=== PATIENT | male | born 1960 | race Caucasian/White ===

== ENCOUNTER 2017-07-31 13:58 | Inpatient (IN) | payer MEDICAID ==
[2017-07-31 13:59] VITALS: BP 152/105; PULSE 93; RESP 20; TEMP 97.7; O2SAT 96
--- NOTE | 2017-07-31 14:50 | PD ---
HPI Chief Complaint: Wound/Suture/Staple Re-Check Time Seen by Provider: 14:50 Travel History International Travel<30 days: No Contact w/Intl Traveler<30days: No Traveled to known affect area: No History of Present Illness HPI 56-year-old male came to the emergency room with history of right foot open wound that started about 2 weeks ago. Patient says he has been taking care at home but it is getting worse. He started getting pain and hence came to the emergency room. Patient is from [place]. He has history of diabetes and that foot had had partial amputation of the forefoot done in the past. Patient says he has been getting chills at home but no fever. Vital signs are stable. [facility] Past Medical History Narrative Medical List of his past medical, surgical, social and family history reviewed from the nursing note. Respiratory: Yes (COPD) Social History Tobacco Use: Yes Allergies-Medications (Allergen,Severity, Reaction): Coded Allergies: vancomycin (Verified Allergy, Severe, Hives, 07/31/17) Comments List of his allergies reviewed from the nursing note. Reported Meds & Prescriptions Reported Meds & Active Scripts Active Reported Symbicort Inh (Budesonide/Formoterol Fumarate) 160-4.5 Mcg/Act Aero 2 Puff INH Q12HR Narrative Medication List of his home medications reviewed from the nursing note. Review of Systems Except as stated in HPI: all other systems reviewed are Neg Musculoskeletal: Positive: Pain Physical Exam Narrative GENERAL: Awake, alert, moderate distress SKIN: Focused skin assessment warm/dry. Right forefoot amputation, 2 cm diameter ulcer at the head of the fourth metatarsal on the plantar aspect. HEAD: Atraumatic. Normocephalic. EYES: Pupils equal and round. No scleral icterus. No injection or drainage. ENT: No nasal bleeding or discharge. Mucous membranes pink and moist. NECK: Trachea midline. No JVD. CARDIOVASCULAR: Regular rate and rhythm. No murmur appreciated. RESPIRATORY: No accessory muscle use. Clear to auscultation. Breath sounds equal bilaterally. GASTROINTESTINAL: Abdomen soft, non-tender, nondistended. Hepatic and splenic margins not palpable. MUSCULOSKELETAL: No obvious deformities. No clubbing. No cyanosis. No edema. NEUROLOGICAL: Awake and alert. No obvious cranial nerve deficits. Motor grossly within normal limits. Normal speech. PSYCHIATRIC: Appropriate mood and affect; insight and judgment normal. Data Data Last Documented VS Orders Orders Sepsis Workup Initiated (07/31/17 ) Complete Blood Count With Diff (07/31/17 14:50) Comprehensive Metabolic Panel (07/31/17 14:50) Lactic Acid Sepsis Protocol (07/31/17 14:50) Urinalysis - C+S If Indicated (07/31/17 14:50) Blood Culture (07/31/17 14:50) Blood Glucose (07/31/17 14:50) Ecg Monitoring (07/31/17 14:50) Iv Access Insert/Monitor (07/31/17 14:50) Oximetry (07/31/17 14:50) Oxygen Administration (07/31/17 14:50) C-Reactive Protein (Crp) (07/31/17 14:50) Piperacil-Tazo 4.5 Gm Premix (Zosyn 4.5 (07/31/17 15:00) Sodium Chlor 0.9% 1000 Ml Inj (Ns 1000 M (07/31/17 15:00) Mri Foot W&W/O Contrast (07/31/17 ) Gadodiamide Pf Inj (Omniscan Pf Inj) (07/31/17 17:00) Morphine Inj (Morphine Inj) (07/31/17 18:00) Ketorolac Inj (Toradol Inj) (07/31/17 18:00) Consult Podiatry (07/31/17 ) Admit Order (Ed Use Only) (07/31/17 18:40) Foot, Limited (2vws) (07/31/17 ) (Hub Use Only)Inp Phy Cons/Ref (07/31/17 ) Labs Laboratory Tests Test 07/31/17 15:10 07/31/17 18:00 White Blood Count 9.3 TH/MM3 Red Blood Count 5.72 MIL/MM3 Hemoglobin 18.1 GM/DL Hematocrit 52.3 % Mean Corpuscular Volume 91.3 FL Mean Corpuscular Hemoglobin 31.7 PG Mean Corpuscular Hemoglobin Concent 34.7 % Red Cell Distribution Width 14.6 % Platelet Count 289 TH/MM3 Mean Platelet Volume 8.2 FL Neutrophils (%) (Auto) 61.7 % Lymphocytes (%) (Auto) 27.4 % Monocytes (%) (Auto) 7.9 % Eosinophils (%) (Auto) 2.1 % Basophils (%) (Auto) 0.9 % Neutrophils # (Auto) 5.7 TH/MM3 Lymphocytes # (Auto) 2.5 TH/MM3 Monocytes # (Auto) 0.7 TH/MM3 Eosinophils # (Auto) 0.2 TH/MM3 Basophils # (Auto) 0.1 TH/MM3 CBC Comment DIFF FINAL Differential Comment Erythrocyte Sedimentation Rate 1 mm/hr Blood Urea Nitrogen 11 MG/DL Creatinine 0.99 MG/DL Random Glucose 93 MG/DL Total Protein 7.9 GM/DL Albumin 3.7 GM/DL Calcium Level 9.3 MG/DL Alkaline Phosphatase 101 U/L Aspartate Amino Transf (AST/SGOT) 13 U/L Alanine Aminotransferase (ALT/SGPT) 20 U/L Total Bilirubin 0.3 MG/DL Sodium Level 138 MEQ/L Potassium Level 4.0 MEQ/L Chloride Level 105 MEQ/L Carbon Dioxide Level 26.6 MEQ/L Anion Gap 6 MEQ/L Estimat Glomerular Filtration Rate 78 ML/MIN Lactic Acid Level 1.2 mmol/L C-Reactive Protein 1.60 MG/DL Urine Color YELLOW Urine Turbidity CLEAR Urine pH 5.5 Urine Specific [place] 1.017 Urine Protein NEG mg/dL Urine Glucose (UA) NEG mg/dL Urine Ketones NEG mg/dL Urine Occult Blood NEG Urine Nitrite NEG Urine Bilirubin NEG Urine Urobilinogen LESS THAN 2.0 MG/DL Urine Leukocyte Esterase NEG Urine RBC 2 /hpf Urine WBC LESS THAN 1 /hpf Urine Mucus FEW /lpf Microscopic Urinalysis Comment CATH-CULT NOT IND MDM Medical Decision Making Medical Screen Exam Complete: Yes Emergency Medical Condition: Yes Medical Record Reviewed: Yes Differential Diagnosis Osteo-myelitis, diabetes foot ulcer Narrative Course 6:28 PM patient was given IV Zosyn. Blood test results are back and within acceptable limits. MRI shows early osteomyelitis. I discussed the case with the directional driller Dr. Aden and she will consult on the patient. Awaiting for the hospitalist to call back for admission. Patient was treated for pain. Procedures EKG Prior to Arrival: No Diagnosis Primary Impression: Diabetes mellitus with foot ulcer Qualified Codes: E13.621 - Other specified diabetes mellitus with foot ulcer; L97.509 - Non-pressure chronic ulcer of other part of unspecified foot with unspecified severity Additional Impression: Osteomyelitis Qualified Codes: M86.171 - Other acute osteomyelitis, right ankle and foot Admitting Information Admitting Physician Requests: Admit Scripts Hydrocodone-Acetaminophen ([place]) 5 Mg-325 Mg Tab 1 TAB PO Q6H Y for PAIN, #12 TAB 0 Refills Prov: Usha Lemus DO 08/02/17 Doxycycline Hyclate (Doxycycline Hyclate) 100 Mg Cap 100 MG PO BID for Infection, #20 CAP 0 Refills Prov: Usha Lemus DO 08/02/17 Carlitos Stover MD Jul 31, 2017 14:50
[2017-07-31] MEDS ORDERED: PIPERACIL-TAZO 4.5 GM PREMIX 100 ML IV ONE (15:00)
[2017-07-31] MEDS ORDERED: SODIUM CHLOR 0.9% 1000 ML INJ 1,000 ML IV ONE (15:00)
[2017-07-31 15:46] LABS: AUTOMATED NEUTROPHIL # 5.7 TH/MM3 (1.8-7.7); BASOPHIL # 0.1 TH/MM3 (0-0.2); BASOPHIL % 0.9 % (0.0-2.0); EOSINOPHIL # 0.2 TH/MM3 (0-0.4); EOSINOPHIL % 2.1 % (0.0-4.0); HEMATOCRIT 52.3 % (39.0-51.0); HEMOGLOBIN 18.1 GM/DL (13.0-17.0); LYMPH % 27.4 % (9.0-44.0); LYMPHOCYTE # 2.5 TH/MM3 (1.0-4.8); MEAN CELL VOLUME 91.3 FL (80.0-100.0); MEAN CORPUSCULAR HEMOGLOBIN 31.7 PG (27.0-34.0); MEAN CORPUSCULAR HGB CONC 34.7 % (32.0-36.0); MEAN PLATELET VOLUME 8.2 FL (7.0-11.0); MONO % 7.9 % (0.0-8.0); MONOCYTE # 0.7 TH/MM3 (0-0.9); NEUT % 61.7 % (16.0-70.0); PLATELET COUNT 289 TH/MM3 (150-450); RED BLOOD COUNT 5.72 MIL/MM3 (4.50-5.90); RED CELL DISTRIBUTION WIDTH 14.6 % (11.6-17.2); WHITE BLOOD COUNT 9.3 TH/MM3 (4.0-11.0)
[2017-07-31 16:02] LABS: ALBUMIN 3.7 GM/DL (3.4-5.0); AST (GOT) 13 U/L (15-37); BICARBONATE 26.6 MEQ/L (21.0-32.0); BLOOD UREA NITROGEN 11 MG/DL (7-18); CALCIUM 9.3 MG/DL (8.5-10.1); CHLORIDE 105 MEQ/L (98-107); CREATININE 0.99 MG/DL (0.60-1.30); GLOMERULAR FILTRATION RATE 78 ML/MIN (>89); GLUCOSE,RANDOM 93 MG/DL (74-106); SODIUM (NA) 138 MEQ/L (136-145)
[2017-07-31 16:05] LABS: ALKALINE PHOSPHATASE 101 U/L (45-117); ALT (GPT) 20 U/L (12-78); TOTAL BILIRUBIN ADULT 0.3 MG/DL (0.2-1.0); TOTAL PROTEIN 7.9 GM/DL (6.4-8.2)
[2017-07-31] MEDS ORDERED: GADODIAMIDE PF 287 MG/ML 20 ML VIAL (for RAD MRI) IVCONTRAST ONE (17:00)
[2017-07-31] MEDS ORDERED: SYMB160A INH (18:00)
[2017-07-31] MEDS ORDERED: MORPHINE SULFATE 2 MG/ML INJ IV PUSH ONE (18:00)
[2017-07-31] MEDS ORDERED: KETOROLAC TROMETHAMINE 30 MG/ML (IVP) VIAL IV PUSH ONE (18:00)
[2017-07-31 18:04] VITALS: BP 114/96; PULSE 100; RESP 14; O2SAT 96
--- NOTE | 2017-07-31 18:18 | RADRPT ---
EXAM DATE/TIME: 07/31/2017 16:36 [facility] COMPARISON: No previous studies available for comparison. INDICATIONS : Osteomyelitis. Wound on plantar surface of right foot. CONTRAST: 20 cc Omniscan (gadodiamide) IV MEDICAL HISTORY : Diabetes mellitus type 2. Hypercholesterolemia. SURGICAL HISTORY : Cholecystectomy. ENCOUNTER: Initial ACUITY: 2 weeks PAIN SCORE: 5/10 LOCATION: Right foot. TECHNIQUE: Multiplanar, multisequence MRI examination was performed without contrast and after the intravenous a dministration of gadolinium. FINDINGS: The patient is status post transmetatarsal amputation of the right foot. There is evidence of edema a nd enhancement of the mid to distal portions of the first and fifth metatarsals. The distal most port ion of the second metatarsal also demonstrates some edema and enhancement. Although these findings ar e nonspecific possibility of osteomyelitis of these bones is raised. White blood cell scan may be hel pful for further evaluation if confirmation is needed. The remainder of the bones of the right foot a re unremarkable. Subcutaneous swelling is noted both medially and laterally adjacent to the first and fifth metatarsals. No definite rim-enhancing collection to suggests abscess is noted. CONCLUSION: Edema and enhancement of the mid to distal portions of the first and fifth metatarsals. The distal mo st portion of the second metatarsal also demonstrates some edema and enhancement. Although these find ings are nonspecific possibility of osteomyelitis of these bones is raised. White blood cell scan may be helpful for further evaluation if confirmation is needed. Cellulitis is noted adjacent to the fir st and fifth metatarsals without definite subcutaneous abscess noted. Gideon Toure MD on July 31, 2017 at 18:06 Board Certified Radiologist. This report was verified electronically.
[2017-07-31 18:28] LABS: BILIRUBIN, URINE NEG (NEG); BLOOD, URINE NEG (NEG); GLUCOSE,URINE NEG (NEG); KETONE, URINE NEG (NEG); MUCUS URINE FEW /lpf (OCC); NITRITE,URINE NEG (NEG); PH, URINE 5.5 (5.0-8.5); URINE COLOR YELLOW (YELLW/STRAW); URINE LEUKOCYTE ESTERASE NEG (NEG)
[2017-07-31] MEDS ORDERED: SODIUM CHLORIDE 0.9% FLUSH 10 ML FLUSH IV FLUSH PRN (18:45)
[2017-07-31] MEDS ORDERED: NALOXONE HCL 0.4 MG/ML AMP IV PUSH PRN (18:45)
--- NOTE | 2017-07-31 19:20 | RADRPT ---
EXAM DATE/TIME: 07/31/2017 18:56 [facility] COMPARISON: No previous studies available for comparison. INDICATIONS : Osteomyelitis. Wound on plantar surface of right foot. MEDICAL HISTORY : Diabetes mellitus type II. Hypercholesterolemia. SURGICAL HISTORY : Cholecystectomy. Right toes amputation. ENCOUNTER: Initial ACUITY: 2 weeks PAIN SCORE: 5/10 LOCATION: Right foot. FINDINGS: Two view examination of the right foot demonstrates a mid tarsal amputation of the foot. There is sof t tissue swelling. No definite emphysema seen in the subcutaneous soft tissues. There is no evidence of any cortical erosion or bony destruction. No radiopaque foreign bodies. CONCLUSION: 1. Nonspecific soft tissue swelling involving the distal portion of the foot. 2. Status post midtarsal amputation. 3. No bone erosion or destruction to suggest osteomyelitis. Mark Olmos MD on July 31, 2017 at 19:14 Board Certified Radiologist. This report was verified electronically.
[2017-07-31 20:00] VITALS: BP 142/79; PULSE 88; RESP 20; TEMP 97; O2SAT 95
--- NOTE | 2017-07-31 20:25 | HHI.HP ---
[facility] Primary Care Physician Unknown Admission Diagnosis Diabetic foot, Osteomyelitis Diagnoses: Travel History International Travel<30 Days: No Contact w/Intl Traveler <30 Da: No Traveled to Known Affected Are: No History of Present Illness 56-year-old male with a past medical history significant for COPD, hyperlipidemia and history of osteomyelitis requiring previous transmetatarsal amputation presents with a two-week history of worsening right foot ulcer. Patient reports he sees a middle school guidance counselor in [place], last seen 4 weeks ago. Approximately 2 weeks ago he developed a blister on the medial plantar aspect of his foot. The blister that ruptured, draining serosanguineous material and an ulcer formed. Over the past 2-3 days the discharge has become malodorous. The patient denies any fever/chills. Denies shortness of breath or chest pain. Review of Systems Except as stated in HPI: all other systems reviewed are Neg Past Family Social History Past Medical History Hyperlipidemia COPD History of right foot osteomyelitis status post amputation 3 Past Surgical History 3 toe amputations for osteomyelitis Cholecystectomy Right knee surgery Reported Medications Reported Meds & Active Scripts Active Reported Symbicort Inh (Budesonide/Formoterol Fumarate) 160-4.5 Mcg/Act Aero 2 Puff INH Q12HR Allergies: Coded Allergies: vancomycin (Verified Allergy, Severe, Hives, 07/31/17) Family History Mom with diabetes mellitus, type CAD. Social History Smokes cigars occasionally. Denies alcohol or illicit drugs. Physical Exam Vital Signs Vital Signs Date Time Temp Pulse Resp B/P (MAP) Pulse Ox O2 Delivery O2 Flow Rate FiO2 07/31/17 18:04 100 14 114/96 (102) 96 Room Air 07/31/17 16:36 (121) Room Air 07/31/17 16:36 98 Room Air 07/31/17 14:47 84 16 07/31/17 13:59 97.7 93 20 152/105 (121) 96 Room Air Physical Exam GENERAL: male sitting up in bed SKIN: 3 cm round ulceration on the medial aspect of the plantar surface of the right lower extremity. Ulcer is deep with surrounding erythema. No drainage. HEAD: Atraumatic. Normocephalic. No temporal or scalp tenderness. EYES: Pupils equal round and reactive. Extraocular motions intact. No scleral icterus. No injection or drainage. ENT: Nose without bleeding, purulent drainage or septal hematoma. Throat without erythema, tonsillar hypertrophy or exudate. Uvula midline. Airway patent. NECK: Trachea midline. No JVD or lymphadenopathy. Supple, nontender, no meningeal signs. CARDIOVASCULAR: Regular rate and rhythm without murmurs, gallops, or rubs. RESPIRATORY: Clear to auscultation. Breath sounds equal bilaterally. No wheezes , rales, or rhonchi. GASTROINTESTINAL: Abdomen soft, non-tender, nondistended. No hepato-splenomegaly , or palpable masses. MUSCULOSKELETAL: Extremities without clubbing, cyanosis, or edema. No joint tenderness, effusion, or edema noted. No calf tenderness. NEUROLOGICAL: Awake and alert. Cranial nerves II through XII intact. Motor and sensory grossly within normal limits. Normal speech. Laboratory Laboratory Tests Test 07/31/17 15:10 07/31/17 18:00 White Blood Count 9.3 Red Blood Count 5.72 Hemoglobin 18.1 Hematocrit 52.3 Mean Corpuscular Volume 91.3 Mean Corpuscular Hemoglobin 31.7 Mean Corpuscular Hemoglobin Concent 34.7 Red Cell Distribution Width 14.6 Platelet Count 289 Mean Platelet Volume 8.2 Neutrophils (%) (Auto) 61.7 Lymphocytes (%) (Auto) 27.4 Monocytes (%) (Auto) 7.9 Eosinophils (%) (Auto) 2.1 Basophils (%) (Auto) 0.9 Neutrophils # (Auto) 5.7 Lymphocytes # (Auto) 2.5 Monocytes # (Auto) 0.7 Eosinophils # (Auto) 0.2 Basophils # (Auto) 0.1 CBC Comment DIFF FINAL Differential Comment Blood Urea Nitrogen 11 Creatinine 0.99 Random Glucose 93 Total Protein 7.9 Albumin 3.7 Calcium Level 9.3 Alkaline Phosphatase 101 Aspartate Amino Transf (AST/SGOT) 13 Alanine Aminotransferase (ALT/SGPT) 20 Total Bilirubin 0.3 Sodium Level 138 Potassium Level 4.0 Chloride Level 105 Carbon Dioxide Level 26.6 Anion Gap 6 Estimat Glomerular Filtration Rate 78 Lactic Acid Level 1.2 C-Reactive Protein 1.60 Urine Color YELLOW Urine Turbidity CLEAR Urine pH 5.5 Urine Specific [place] 1.017 Urine Protein NEG Urine Glucose (UA) NEG Urine Ketones NEG Urine Occult Blood NEG Urine Nitrite NEG Urine Bilirubin NEG Urine Urobilinogen LESS THAN 2.0 Urine Leukocyte Esterase NEG Urine RBC 2 Urine WBC LESS THAN 1 Urine Mucus FEW Microscopic Urinalysis Comment CATH-CULT NOT IND Date/Time Source Procedure Growth Status 07/31/17 15:10 Blood Peripheral Aerobic Blood Culture Pending Received 07/31/17 15:10 Blood Peripheral Anaerobic Blood Culture Pending Received Result Diagram: 07/31/17 1510 07/31/17 1510 Caprini VTE Risk Assessment Caprini VTE Risk Assessment: No/Low Risk (score <= 1) Caprini Risk Assessment Model Point Value = 1 Point Value = 2 Point Value = 3 Point Value = 5 Age 41-60 Minor surgery BMI > 25 kg/m2 Swollen legs Varicose veins or History of unexplained or recurrent spontaneous Oral contraceptives or hormone replacement Sepsis (< 1 month) Serious lung disease, including pneumonia (< 1 month) Abnormal pulmonary function Acute myocardial infarction Congestive heart failure (< 1 month) History of inflammatory bowel disease Medical patient at bed rest Age 61-74 Arthroscopic surgery Major open surgery (> 45 min) Laparoscopic surgery (> 45 min) Malignancy Confined to bed (> 72 hours) Immobilizing plaster cast Central venous access Age >= 75 History of VTE Family history of VTE Factor V Leiden Prothrombin [id number] Lupus anticoagulant Anticardiolipin antibodies Elevated serum homocysteine Heparin-induced thrombocytopenia Other congenital or acquired thrombophilia Stroke (< 1 month) Elective arthroplasty Hip, pelvis, or leg fracture Acute spinal cord injury (< 1 month) Prophylaxis Regimen Total Risk Factor Score Risk Level Prophylaxis Regimen 0-1 Low Early ambulation 2 Moderate Order ONE of the following: *Sequential Compression Device (SCD) *Heparin 5000 units SQ BID 3-4 Higher Order ONE of the following medications: *Heparin 5000 units SQ TID *Enoxaparin/Lovenox 40 mg SQ daily (WT < 150 kg, CrCl > 30 mL/min) *Enoxaparin/Lovenox 30 mg SQ daily (WT < 150 kg, CrCl > 10-29 mL/min) *Enoxaparin/Lovenox 30 mg SQ BID (WT < 150 kg, CrCl > 30 mL/min) AND/OR *Sequential Compression Device (SCD) 5 or more Highest Order ONE of the following medications: *Heparin 5000 units SQ TID (Preferred with Epidurals) *Enoxaparin/Lovenox 40 mg SQ daily (WT < 150 kg, CrCl > 30 mL/min) *Enoxaparin/Lovenox 30 mg SQ daily (WT < 150 kg, CrCl > 10-29 mL/min) *Enoxaparin/Lovenox 30 mg SQ BID (WT < 150 kg, CrCl > 30 mL/min) AND *Sequential Compression Device (SCD) Assessment and Plan Assessment and Plan Assessment/plan: 1. Osteomyelitis of the right foot MRI of the right foot shows edema and enhancement of the mid to distal portions of the first and fifth metatarsals, concerning for osteomyelitis CRP elevated at 1.6 ESR pending Cultures pending Levaquin/Zosyn as patient allergic to vancomycin Working for pain Podiatry consulted, appreciate recommendations 2. COPD Continue home Symbicort DuoNebs FEN Nothing by mouth after midnight Electrolytes: Monitor and replete when necessary Holding pharmacologic anticoagulation for possible operative intervention Physician Certification 2 Midnight Certification Type: Admission for Inpatient Services Order for Inpatient Services The services are ordered in accordance with Medicare regulations or non- Medicare payer requirements, as applicable. In the case of services not specified as inpatient-only, they are appropriately provided as inpatient services in accordance with the 2-midnight benchmark. Estimated LOS (days): 2 2 days is the estimated time the patient will need to remain in the hospital, assuming treatment plan goals are met and no additional complications. Post-Hospital Plan: Not yet determined Rosemarie Osorio MD Jul 31, 2017 20:25
[2017-07-31] MEDS ORDERED: RESP: ALBUTEROL 2.5 MG/IPRATROPIUM 0.5 MG NEB (PRN) NEB (20:30)
[2017-07-31] MEDS ORDERED: LEVOFLOXACIN 750 MG PREMIX INJ 150 ML IV SCH (21:00)
--- NOTE | 2017-07-31 21:06 | PD.CONS ---
History of Present Illness Service Foot and ankle surgery/podiatry Consult Requested By Dr. Trejo Reason for Consult Right sub-met 4/5 ulcer with possible osteomyelitis Primary Care Physician Unknown Diagnoses: History of Present Illness Patient is a 56-year-old male with past medical history of COPD, hyperlipidemia and history of osteomyelitis occurring previous transmetatarsal amputation performed by his lineman in [place] patient states he is a two-week history of worsening right foot pain as well as increased malodor or erythema and pain to plantar right foot ulcer. Patient states he is currently in pain and what he is being given is not helping his pain at all. His like to know if there is some special lotion I can applied to the ulcer sites that is not painful. Patient denies any nausea vomiting fevers or chills. Denies chest pain or shortness of breath. Review of Systems Constitutional: DENIES: Fatigue Eyes: DENIES: Blurred vision Respiratory: DENIES: Cough, Wheezing, Shortness of breath Cardiovascular: DENIES: Chest pain, Syncope Psychiatric: DENIES: Anxiety, Confusion Past Family Social History Allergies: Coded Allergies: vancomycin (Verified Allergy, Severe, Hives, 07/31/17) Past Medical History As dictated in history of present illness Past Surgical History Transmetatarsal amputation to right foot Active Ordered Medications Current Medications Medications (Trade) Dose Ordered Sig/Gwen Route Start Time Stop Time Status Last Admin (NS Flush) 2 ml UNSCH PRN IV FLUSH 07/31/17 18:45 (NS Flush) 2 ml BID IV FLUSH 07/31/17 21:00 (Narcan Inj) 0.4 mg UNSCH PRN IV PUSH 07/31/17 18:45 Piperacillin Sod/ Tazobactam Sod 100 ml @ 200 mls/hr Q6HR IV 08/01/17 00:00 (Lactinex) 1 tab TID PO 08/01/17 09:00 (Morphine Inj) 2 mg Q3H PRN IV PUSH 07/31/17 19:00 (Symbicort 160-4.5 Mcg Inh) 2 puff Q12HR INH 07/31/17 21:00 (Duoneb Neb) 1 ampule Q4HR NEB PRN NEB 07/31/17 20:30 Social History Patient lives in [place] and is currently visiting [facility] Physical Exam Vital Signs Vital Signs Date Time Temp Pulse Resp B/P (MAP) Pulse Ox O2 Delivery O2 Flow Rate FiO2 07/31/17 18:04 100 14 114/96 (102) 96 Room Air 07/31/17 16:36 (121) Room Air 07/31/17 16:36 98 Room Air 07/31/17 14:47 84 16 07/31/17 13:59 97.7 93 20 152/105 (121) 96 Room Air Physical Exam GENERAL: This is a well-nourished, well-developed patient, in no apparent distress. SKIN: No rashes, ecchymoses or lesions. Cool and dry. Right foot plantar lateral ulcer. HEAD: Atraumatic. Normocephalic. EYES: Pupils equal round and reactive. Extraocular motions intact. ENT: Nose without bleeding, purulent drainage or septal hematoma. Airway patent. RESPIRATORY: Non-labored breathing MUSCULOSKELETAL: Transmetatarsal or noted right foot NEUROLOGICAL: Awake and alert. Cranial nerves II through XII intact. Motor and sensory grossly within normal limits. Five out of 5 muscle strength in all muscle groups. Normal speech. Lower extremity physical exam: Vascular: Dorsalis pedis 1/4, posterior tibial 1/4. Capillary refill time within normal limits to transmetatarsal stump right. Edema present right foot mild nature with no pitting noted. Neuro: Gross sensation intact to bilateral lower extremity. Pinpoint sensation decreased. No hyperalgesia noted to bilateral lower extremity Dermatology: Normal temperature and turgor to bilateral lower extremity. Right plantar lateral ulcer noted with fibrotic and granular base and hyperkeratotic skin edges, mild circumferential undermining noted, no purulent drainage upon compression, no serous drainage upon compression, no probe to bone, no fluctuance or crepitance noted. Ulcer measuring approximately 1.5 cm x 1.5 cm with 0.2 depth. Musculoskeletal: Tender to palpation to the right plantar lateral foot and ulceration site. Transmetatarsal dictation to right foot Laboratory Laboratory Tests Test 07/31/17 15:10 07/31/17 18:00 White Blood Count 9.3 Red Blood Count 5.72 Hemoglobin 18.1 Hematocrit 52.3 Mean Corpuscular Volume 91.3 Mean Corpuscular Hemoglobin 31.7 Mean Corpuscular Hemoglobin Concent 34.7 Red Cell Distribution Width 14.6 Platelet Count 289 Mean Platelet Volume 8.2 Neutrophils (%) (Auto) 61.7 Lymphocytes (%) (Auto) 27.4 Monocytes (%) (Auto) 7.9 Eosinophils (%) (Auto) 2.1 Basophils (%) (Auto) 0.9 Neutrophils # (Auto) 5.7 Lymphocytes # (Auto) 2.5 Monocytes # (Auto) 0.7 Eosinophils # (Auto) 0.2 Basophils # (Auto) 0.1 CBC Comment DIFF FINAL Differential Comment Blood Urea Nitrogen 11 Creatinine 0.99 Random Glucose 93 Total Protein 7.9 Albumin 3.7 Calcium Level 9.3 Alkaline Phosphatase 101 Aspartate Amino Transf (AST/SGOT) 13 Alanine Aminotransferase (ALT/SGPT) 20 Total Bilirubin 0.3 Sodium Level 138 Potassium Level 4.0 Chloride Level 105 Carbon Dioxide Level 26.6 Anion Gap 6 Estimat Glomerular Filtration Rate 78 Lactic Acid Level 1.2 C-Reactive Protein 1.60 Urine Color YELLOW Urine Turbidity CLEAR Urine pH 5.5 Urine Specific [place] 1.017 Urine Protein NEG Urine Glucose (UA) NEG Urine Ketones NEG Urine Occult Blood NEG Urine Nitrite NEG Urine Bilirubin NEG Urine Urobilinogen LESS THAN 2.0 Urine Leukocyte Esterase NEG Urine RBC 2 Urine WBC LESS THAN 1 Urine Mucus FEW Microscopic Urinalysis Comment CATH-CULT NOT IND Date/Time Source Procedure Growth Status 07/31/17 15:10 Blood Peripheral Aerobic Blood Culture Pending Received 07/31/17 15:10 Blood Peripheral Anaerobic Blood Culture Pending Received Result Diagram: 07/31/17 1510 07/31/17 1510 Imaging Last Impressions Foot X-Ray 07/31/17 0000 Signed Impressions: Service Date/Time: Monday, July 31, 2017 18:56 - CONCLUSION: 1. Nonspecific soft tissue swelling involving the distal portion of the foot. 2. Status post midtarsal amputation. 3. No bone erosion or destruction to suggest osteomyelitis. Mark Olmos MD Foot MRI 07/31/17 0000 Signed Impressions: Service Date/Time: Monday, July 31, 2017 16:36 - CONCLUSION: Edema and enhancement of the mid to distal portions of the first and fifth metatarsals. The distal most portion of the second metatarsal also demonstrates some edema and enhancement. Although these findings are nonspecific possibility of osteomyelitis of these bones is raised. White blood cell scan may be helpful for further evaluation if confirmation is needed. Cellulitis is noted adjacent to the first and fifth metatarsals without definite subcutaneous abscess noted. Gideon Toure MD Assessment and Plan Assessment and Plan 56-year-old male status post transmetatarsal amputation with right plantar lateral ulcer at [facility] 09/27 Patient examined and evaluated with all questions answered Reviewed x-ray and MRI Discussed bedside debridement with patient Orders placed for supplies to be bedside for intervention tomorrow Orders placed for consent for bedside procedure Patient states he like to follow up with his lineman in [place] before any OR surgical intervention is performed as he is just visiting family, he was concerned for acute infection/abscess No abscess noted on MRI of the drainage upon compression questionable bony edema to fourth fifth metatarsals We will proceed with bedside debridement and anticipate patient discharge per podiatry 1 to 2 days following intervention Santyl with moist and dry dressing to be applied to ulceration site, wound care orders will be placed No surgical intervention anticipated at this time however bedside intervention will be performed and surgical intervention will be reevaluated Misti Aden DPM Jul 31, 2017 21:06
[2017-07-31] MEDS ORDERED: COLLAGENASE OINT 30 GM TUBE TOPICAL ONE (21:30)
[2017-07-31] MEDS: BUDESONIDE-FORMOTEROL 160/4.5 MCG INHALER INH SCH (22:25)
[2017-07-31] MEDS: SODIUM CHLORIDE 0.9% FLUSH 10 ML FLUSH IV FLUSH SCH (22:26)
[2017-07-31] MEDS: MORPHINE SULFATE 2 MG/ML INJ IV PUSH PRN (22:28)
[2017-08-01] VITALS (10 sets, daily range): BP systolic 102–133; BP diastolic 62–81; PULSE 70–103; RESP 17–19; TEMP 97.4–98.3; O2SAT 92–97
[2017-08-01] MEDS: PIPERACIL-TAZO 4.5 GM PREMIX 100 ML IV SCH ×5 (00:41→23:55)
[2017-08-01] MEDS ORDERED: LIDOCAINE HCL 1% 50 ML VIAL ONE (05:55)
[2017-08-01 08:40] LABS: BICARBONATE 25.6 MEQ/L (21.0-32.0); CALCIUM 8.2 MG/DL (8.5-10.1); CREATININE 0.89 MG/DL (0.60-1.30)
[2017-08-01] MEDS: BUDESONIDE-FORMOTEROL 160/4.5 MCG INHALER INH SCH ×2 (08:47→20:36)
[2017-08-01] MEDS: LACTOBACILLUS ACIDOPHILUS TAB PO SCH ×3 (08:48→17:26)
[2017-08-01] MEDS: SODIUM CHLORIDE 0.9% FLUSH 10 ML FLUSH IV FLUSH SCH ×2 (08:48→20:36)
[2017-08-01] MEDS: MORPHINE SULFATE 2 MG/ML INJ IV PUSH PRN ×4 (08:49→23:55)
[2017-08-01 09:18] LABS: AUTOMATED NEUTROPHIL # 5.2 TH/MM3 (1.8-7.7); BASOPHIL # 0.1 TH/MM3 (0-0.2); EOSINOPHIL # 0.3 TH/MM3 (0-0.4); EOSINOPHIL % 3.5 % (0.0-4.0); HEMATOCRIT 47.5 % (39.0-51.0); HEMOGLOBIN 16.4 GM/DL (13.0-17.0); LYMPH % 20.4 % (9.0-44.0); LYMPHOCYTE # 1.6 TH/MM3 (1.0-4.8); MEAN CORPUSCULAR HEMOGLOBIN 31.7 PG (27.0-34.0); MEAN CORPUSCULAR HGB CONC 34.5 % (32.0-36.0); MEAN PLATELET VOLUME 8.1 FL (7.0-11.0); MONO % 9.4 % (0.0-8.0); MONOCYTE # 0.7 TH/MM3 (0-0.9); NEUT % 65.7 % (16.0-70.0); PLATELET COUNT 224 TH/MM3 (150-450); RED BLOOD COUNT 5.17 MIL/MM3 (4.50-5.90); RED CELL DISTRIBUTION WIDTH 14.3 % (11.6-17.2); WHITE BLOOD COUNT 7.9 TH/MM3 (4.0-11.0)
[2017-08-01] MEDS ORDERED: INFLUENZA VIRUS VACCINE (QUADRIVALENT) 0.5 ML SYR IM ONE (10:00)
--- NOTE | 2017-08-01 15:23 | HHI.PR ---
Subjective Remarks Follow up for right foot digit 4, 5 ulcer and possible osteomyelitis. Patient is currently doing well. He is waiting for bedside debridement later today by Podiatry. No fever, chills. Objective Vitals Vital Signs Date Time Temp Pulse Resp B/P (MAP) Pulse Ox O2 Delivery O2 Flow Rate FiO2 08/01/17 11:28 97.8 82 18 113/73 (86) 95 08/01/17 09:06 97.4 81 18 116/75 (89) 95 08/01/17 08:35 70 08/01/17 05:02 97.7 93 17 102/64 (77) 94 08/01/17 03:53 102 08/01/17 01:29 98.1 103 17 109/62 (78) 92 08/01/17 00:01 102 07/31/17 20:00 97.0 88 20 142/79 (100) 95 07/31/17 18:04 100 14 114/96 (102) 96 Room Air 07/31/17 16:36 (121) Room Air 07/31/17 16:36 98 Room Air I/O 07/31/17 07/31/17 07/31/17 08/01/17 08/01/17 08/01/17 07:00 15:00 23:00 07:00 15:00 23:00 Intake Total 1100 ml 1200 ml Output Total 600 ml Balance 1100 ml 600 ml Intake Oral 1200 ml IV Total 1100 ml Output Urine Total 600 ml Result Diagram: 08/01/17 0638 08/01/17 0638 Imaging Last Impressions Foot X-Ray 07/31/17 0000 Signed Impressions: Service Date/Time: Monday, July 31, 2017 18:56 - CONCLUSION: 1. Nonspecific soft tissue swelling involving the distal portion of the foot. 2. Status post midtarsal amputation. 3. No bone erosion or destruction to suggest osteomyelitis. Mark Olmos MD Foot MRI 07/31/17 0000 Signed Impressions: Service Date/Time: Monday, July 31, 2017 16:36 - CONCLUSION: Edema and enhancement of the mid to distal portions of the first and fifth metatarsals. The distal most portion of the second metatarsal also demonstrates some edema and enhancement. Although these findings are nonspecific possibility of osteomyelitis of these bones is raised. White blood cell scan may be helpful for further evaluation if confirmation is needed. Cellulitis is noted adjacent to the first and fifth metatarsals without definite subcutaneous abscess noted. Gideon Toure MD Objective Remarks GENERAL: Alert, Oriented x 3, NAD. SKIN: Warm and dry. HEAD: Normocephalic. EYES: No scleral icterus. No injection or drainage. NECK: Supple, trachea midline. No JVD or lymphadenopathy. CARDIOVASCULAR: Regular rate and rhythm without murmurs, gallops, or rubs. RESPIRATORY: Breath sounds equal bilaterally. No accessory muscle use. GASTROINTESTINAL: Abdomen soft, non-tender, nondistended. MUSCULOSKELETAL: No cyanosis, or edema. Right foot wrapped in dressing. BACK: Nontender without obvious deformity. No CVA tenderness. A/P Assessment and Plan 56-year-old male with a past medical history significant for COPD, hyperlipidemia and history of osteomyelitis requiring previous transmetatarsal amputation presents with a two-week history of worsening right foot ulcer. - Right foot ulcer - Possible osteomyelitis - ESR is low. - Bedside debridement planned for today. - Will try to discuss with podiatry regarding further abx. Currently patient is on Zosyn (no MRSA coverage). - We could consider oral abx with Keflex + Bactrim. - COPD - DuoNeb, Symbicort. Full code. SCDs. Discharge plan: Hopefully within 1-2 days, pending Podiatry clearance. Usha Lemus DO Aug 01, 2017 15:23
--- NOTE | 2017-08-01 21:41 | HHI.PR ---
Subjective Remarks Patient seen bedside this evening. Denies any nausea vomiting fevers or chills. States if something is emergent and needs to be done surgically he would prefer taking care of it however he would also like to follow up with his pantograph setter in [place] if it is something that does not need to be taking care of during this admission. Objective Vital Signs Date Time Temp Pulse Resp B/P (MAP) Pulse Ox O2 Delivery O2 Flow Rate FiO2 08/01/17 16:00 97.9 80 18 133/79 (97) 97 08/01/17 11:28 97.8 82 18 113/73 (86) 95 08/01/17 09:06 97.4 81 18 116/75 (89) 95 08/01/17 08:35 70 08/01/17 05:02 97.7 93 17 102/64 (77) 94 08/01/17 03:53 102 08/01/17 01:29 98.1 103 17 109/62 (78) 92 08/01/17 00:01 102 I/O 07/31/17 07/31/17 07/31/17 08/01/17 08/01/17 08/01/17 07:00 15:00 23:00 07:00 15:00 23:00 Intake Total 1100 ml 1200 ml Output Total 600 ml Balance 1100 ml 600 ml Intake Oral 1200 ml IV Total 1100 ml Output Urine Total 600 ml Result Diagram: 08/01/17 0638 08/01/17 0638 Imaging Last Impressions Foot X-Ray 07/31/17 0000 Signed Impressions: Service Date/Time: Monday, July 31, 2017 18:56 - CONCLUSION: 1. Nonspecific soft tissue swelling involving the distal portion of the foot. 2. Status post midtarsal amputation. 3. No bone erosion or destruction to suggest osteomyelitis. Mark Olmos MD Foot MRI 07/31/17 0000 Signed Impressions: Service Date/Time: Monday, July 31, 2017 16:36 - CONCLUSION: Edema and enhancement of the mid to distal portions of the first and fifth metatarsals. The distal most portion of the second metatarsal also demonstrates some edema and enhancement. Although these findings are nonspecific possibility of osteomyelitis of these bones is raised. White blood cell scan may be helpful for further evaluation if confirmation is needed. Cellulitis is noted adjacent to the first and fifth metatarsals without definite subcutaneous abscess noted. Gideon Toure MD Other Results Laboratory Tests Test 07/31/17 15:10 07/31/17 18:00 08/01/17 06:38 White Blood Count 9.3 TH/MM3 7.9 TH/MM3 Red Blood Count 5.72 MIL/MM3 5.17 MIL/MM3 Hemoglobin 18.1 GM/DL 16.4 GM/DL Hematocrit 52.3 % 47.5 % Mean Corpuscular Volume 91.3 FL 92.0 FL Mean Corpuscular Hemoglobin 31.7 PG 31.7 PG Mean Corpuscular Hemoglobin Concent 34.7 % 34.5 % Red Cell Distribution Width 14.6 % 14.3 % Platelet Count 289 TH/MM3 224 TH/MM3 Mean Platelet Volume 8.2 FL 8.1 FL Neutrophils (%) (Auto) 61.7 % 65.7 % Lymphocytes (%) (Auto) 27.4 % 20.4 % Monocytes (%) (Auto) 7.9 % 9.4 % Eosinophils (%) (Auto) 2.1 % 3.5 % Basophils (%) (Auto) 0.9 % 1.0 % Neutrophils # (Auto) 5.7 TH/MM3 5.2 TH/MM3 Lymphocytes # (Auto) 2.5 TH/MM3 1.6 TH/MM3 Monocytes # (Auto) 0.7 TH/MM3 0.7 TH/MM3 Eosinophils # (Auto) 0.2 TH/MM3 0.3 TH/MM3 Basophils # (Auto) 0.1 TH/MM3 0.1 TH/MM3 CBC Comment DIFF FINAL DIFF FINAL Differential Comment Erythrocyte Sedimentation Rate 1 mm/hr Blood Urea Nitrogen 11 MG/DL 10 MG/DL Creatinine 0.99 MG/DL 0.89 MG/DL Random Glucose 93 MG/DL 92 MG/DL Total Protein 7.9 GM/DL Albumin 3.7 GM/DL Calcium Level 9.3 MG/DL 8.2 MG/DL Alkaline Phosphatase 101 U/L Aspartate Amino Transf (AST/SGOT) 13 U/L Alanine Aminotransferase (ALT/SGPT) 20 U/L Total Bilirubin 0.3 MG/DL Sodium Level 138 MEQ/L 141 MEQ/L Potassium Level 4.0 MEQ/L 3.9 MEQ/L Chloride Level 105 MEQ/L 108 MEQ/L Carbon Dioxide Level 26.6 MEQ/L 25.6 MEQ/L Anion Gap 6 MEQ/L 7 MEQ/L Estimat Glomerular Filtration Rate 78 ML/MIN 89 ML/MIN Lactic Acid Level 1.2 mmol/L C-Reactive Protein 1.60 MG/DL Urine Color YELLOW Urine Turbidity CLEAR Urine pH 5.5 Urine Specific [place] 1.017 Urine Protein NEG mg/dL Urine Glucose (UA) NEG mg/dL Urine Ketones NEG mg/dL Urine Occult Blood NEG Urine Nitrite NEG Urine Bilirubin NEG Urine Urobilinogen LESS THAN 2.0 MG/DL Urine Leukocyte Esterase NEG Urine RBC 2 /hpf Urine WBC LESS THAN 1 /hpf Urine Mucus FEW /lpf Microscopic Urinalysis Comment CATH-CULT NOT IND Hematology Comments Objective Remarks Lower extremity physical exam: Vascular: Dorsalis pedis 1/4, posterior tibial 1/4. Capillary refill time within normal limits to transmetatarsal stump right. Edema present right foot mild nature with no pitting noted. Neuro: Gross sensation intact to bilateral lower extremity. Pinpoint sensation decreased. No hyperalgesia noted to bilateral lower extremity Dermatology: Normal temperature and turgor to bilateral lower extremity. Right plantar lateral ulcer noted with fibrotic and granular base and hyperkeratotic skin edges, mild circumferential undermining noted, no purulent drainage upon compression, no serous drainage upon compression, no probe to bone, no fluctuance or crepitus noted. Ulcer measuring approximately 1.5 cm x 1.5 cm with 0.2 depth. Musculoskeletal: Tender to palpation to the right plantar lateral foot and ulceration site. Transmetatarsal amputation to right foot Medications and IVs Current Medications Medications (Trade) Dose Ordered Sig/Gwen Route Start Time Stop Time Status Last Admin (NS Flush) 2 ml UNSCH PRN IV FLUSH 07/31/17 18:45 (NS Flush) 2 ml BID IV FLUSH 07/31/17 21:00 08/01/17 20:36 (Narcan Inj) 0.4 mg UNSCH PRN IV PUSH 07/31/17 18:45 Piperacillin Sod/ Tazobactam Sod 100 ml @ 200 mls/hr Q6HR IV 08/01/17 00:00 08/01/17 17:26 (Lactinex) 1 tab TID PO 08/01/17 09:00 08/01/17 17:26 (Morphine Inj) 2 mg Q3H PRN IV PUSH 07/31/17 19:00 08/01/17 20:37 (Symbicort 160-4.5 Mcg Inh) 2 puff Q12HR INH 07/31/17 21:00 08/01/17 20:36 (Duoneb Neb) 1 ampule Q4HR NEB PRN NEB 07/31/17 20:30 Assessment and Plan Assessment and Plan 56-year-old male status post transmetatarsal amputation with right plantar lateral ulcer at [facility] 09/27 Patient examined and evaluated with all questions answered Full-thickness excisional debridement to subcutaneous tissue performed bedside to right plantar lateral foot with 10 blade Consent signed in timeout performed Will discuss with hospitalist in a.m. Patient states he like to follow up with his pantograph setter in [place] before any OR surgical intervention is performed as he is just visiting family, he was concerned for acute infection/abscess Daily dressing changes of santyl with moist and dry dressing to be applied to ulceration site No surgical intervention anticipated at this time Misti Aden DPM Aug 01, 2017 21:41
[2017-08-02] VITALS: BP 121/63; PULSE 75; RESP 18; TEMP 97.9; O2SAT 90
[2017-08-02 04:00] VITALS: BP 125/65; PULSE 73; RESP 18; TEMP 97.5; O2SAT 93
[2017-08-02] MEDS: MORPHINE SULFATE 2 MG/ML INJ IV PUSH PRN ×2 (04:32→08:06)
[2017-08-02] MEDS: PIPERACIL-TAZO 4.5 GM PREMIX 100 ML IV SCH (04:32)
[2017-08-02 08:00] VITALS: BP 126/66; PULSE 77; RESP 18; TEMP 97.9; O2SAT 92
[2017-08-02] MEDS: LACTOBACILLUS ACIDOPHILUS TAB PO SCH (08:06)
[2017-08-02] MEDS: SODIUM CHLORIDE 0.9% FLUSH 10 ML FLUSH IV FLUSH SCH (08:06)
[2017-08-02] MEDS: BUDESONIDE-FORMOTEROL 160/4.5 MCG INHALER INH SCH (08:08)
[2017-08-02] MEDS ORDERED: DOXY100C PO (11:47)
[2017-08-02] MEDS ORDERED: NORC5TAB PO (11:52)
--- NOTE | 2017-08-02 11:52 | HHI.PR ---
Subjective Remarks Follow up for right foot digit 4, 5 ulcer. Patient underwent bedside debridement on 08/01/2017. Ulcers are not suspicious for osteomyelitis. Discussed with podiatry today. Patient wants to go home and follow-up with his motor equipment sergeant in [place]. Objective Vitals Vital Signs Date Time Temp Pulse Resp B/P (MAP) Pulse Ox O2 Delivery O2 Flow Rate FiO2 08/02/17 08:00 97.9 77 18 126/66 (86) 92 08/02/17 04:00 97.5 73 18 125/65 (85) 93 08/02/17 00:00 97.9 75 18 121/63 (82) 90 08/01/17 21:45 98.3 82 19 126/81 (96) 94 08/01/17 16:00 97.9 80 18 133/79 (97) 97 I/O 08/01/17 08/01/17 08/01/17 08/02/17 08/02/17 08/02/17 07:00 15:00 23:00 07:00 15:00 23:00 Intake Total 1200 ml 1200 ml Output Total 600 ml 0 ml 950 ml 625 ml Balance 600 ml 1200 ml -950 ml -625 ml Intake Oral 1200 ml 1200 ml Output Urine Total 600 ml 0 ml 950 ml 625 ml # Bowel Movements 0 Result Diagram: 08/01/17 0638 08/01/17 0638 Imaging Last Impressions Foot X-Ray 07/31/17 0000 Signed Impressions: Service Date/Time: Monday, July 31, 2017 18:56 - CONCLUSION: 1. Nonspecific soft tissue swelling involving the distal portion of the foot. 2. Status post midtarsal amputation. 3. No bone erosion or destruction to suggest osteomyelitis. Mark Olmos MD Foot MRI 07/31/17 0000 Signed Impressions: Service Date/Time: Monday, July 31, 2017 16:36 - CONCLUSION: Edema and enhancement of the mid to distal portions of the first and fifth metatarsals. The distal most portion of the second metatarsal also demonstrates some edema and enhancement. Although these findings are nonspecific possibility of osteomyelitis of these bones is raised. White blood cell scan may be helpful for further evaluation if confirmation is needed. Cellulitis is noted adjacent to the first and fifth metatarsals without definite subcutaneous abscess noted. Gideon Toure MD Objective Remarks GENERAL: Alert, Oriented x 3, NAD. SKIN: Warm and dry. HEAD: Normocephalic. EYES: No scleral icterus. No injection or drainage. NECK: Supple, trachea midline. No JVD or lymphadenopathy. CARDIOVASCULAR: Regular rate and rhythm without murmurs, gallops, or rubs. RESPIRATORY: Breath sounds equal bilaterally. No accessory muscle use. GASTROINTESTINAL: Abdomen soft, non-tender, nondistended. MUSCULOSKELETAL: No cyanosis, or edema. Right foot wrapped in dressing. BACK: Nontender without obvious deformity. No CVA tenderness. Procedures Bedside debridement 08/01/2017 A/P Assessment and Plan 56-year-old male with a past medical history significant for COPD, hyperlipidemia and history of osteomyelitis requiring previous transmetatarsal amputation presents with a two-week history of worsening right foot ulcer. - Right foot ulcer - ESR is low - suspicion is low for osteomyelitis. - Bedside debridement completed on 08/01/2017 - No clear evidence of osteomyelitis on acute infection. We'll continue patient on doxycycline 100 mg twice a day for 10 days. - Patient can follow-up with his motor equipment sergeant in [facility]. I also recommended patient to establish care with an infectious disease physician in [facility] - COPD - Guillermina Caldera. Full code. SCDs. Discharge patient to home Condition on discharge: Improved Heart healthy Diet as tolerated Ad [place] activity Rx written: [place] 5 Q6hrs PRN #12 Dr. rios 100 mg twice a day for 10 days Follow-up with primary care physician within one week and motor equipment sergeant within one week. Usha Lemus DO Aug 02, 2017 11:52 am
[2017-08-02 12:05] VITALS: BP 125/72; PULSE 87; RESP 20; TEMP 97.6; O2SAT 92
== END 2017-08-02 12:24 | disposition home or self-care (01) | DRG 624 ==
LOC: NEPE 13:58 → NEDA 18:42 → NEPGCP 20:34 → N05A 08-01 16:02
PROVIDERS: ADMIT Hospitalist; ATTEND Hospitalist
PROC: 0JBQ0ZZ Excision of Right Foot Subcutaneous Tissue and Fascia, Open Approach (ICD-10-PCS; principal; 2017-08-01)
DX: E11.621 Type 2 diabetes mellitus with foot ulcer (principal); L97.519 Non-pressure chronic ulcer of other part of right foot with unspecified severity; J44.9 Chronic obstructive pulmonary disease, unspecified; E78.5 Hyperlipidemia, unspecified; F17.290 Nicotine dependence, other tobacco product, uncomplicated; Z88.1 Allergy status to other antibiotic agents; Z23 Encounter for immunization
CPT/HCPCS: 73620; 73720; 76937; 80048; 80053; 81001; 83605; 85025; 85652; 86140; 87040; 90686; 96365; 96375; A9579; J1885; J2270; J2543; J7030; Q2038